=== PATIENT | male | born 1955 | race Caucasian/White ===

== ENCOUNTER 2016-10-22 13:25 | Day surgery (SDC) | payer MEDICARE, OTHER ==
[~2016-10-22 13:25] MED LIST: BUPR-175 PO; CARV6.25 PO; LORA10TA
[2016-10-22] MEDS ORDERED: GABA100C4 PO (13:42)
[2016-10-22] MEDS ORDERED: BUPR75TA PO (13:42)
[2016-10-22] MEDS ORDERED: MELO-1 PO (13:43)
[2016-10-22] MEDS ORDERED: CEPH500C PO (13:43)
[2016-10-22] MEDS ORDERED: ZOLP10TA3 PO (13:44)
[2016-10-22] MEDS ORDERED: FLUTI44I INH (13:44)
[2016-10-22] MEDS ORDERED: OMEP20TA PO (13:45)
[2016-10-22] MEDS ORDERED: ASPI81CH37 CHEW (13:45)
[2016-10-22] MEDS ORDERED: OXYC-395 PO (13:46)
[2016-10-22] MEDS ORDERED: CEPH250C PO (13:49)
[2016-10-22] MEDS ORDERED: DICL500 PO (13:50)
[2016-10-22] MEDS ORDERED: DOXY1CAP74 PO (13:50)
[2016-10-22] MEDS ORDERED: ALEV220T14 PO (13:51)
[2016-10-22] MEDS ORDERED: IBUP400T20 PO (13:51)
[2016-10-22 13:54] VITALS: BP 161/115; PULSE 68; RESP 20; TEMP 98.6; O2SAT 95
[2016-10-22] MEDS ORDERED: oxyCODONE/ACETAMINOPHEN 7.5 MG/325 MG TAB PO ONE (14:30)
[2016-10-22 14:50] VITALS: BP 137/70; PULSE 84; RESP 18; TEMP 97.2; O2SAT 98
--- NOTE | 2016-10-22 14:52 | PD.RAD ---
Post Procedure Progress Note Pre Procedure Diagnosis: (1) Left hip prosthetic joint infection Post Procedure Diagnosis: (1) Left hip prosthetic joint infection Procedure Date: Oct 22, 2016 Supervising Radiologist: Akash Winters JR Proceduralist/Assist: Jade Sanchez, RT(R), Pavithra Moncada, RT(R)(CV) Anesthesia: Local Plan of Activity Patient to Unit: ROPU Patient Condition: Good Additional Comments: Left hip aspiration yielded no fluid. 5ml sterile saline instilled with aspiration giving 0.1ml return. Sent for microbiological analysis See PACS Report for procedural detail/treatment Jr. Singh,Akash Bailey MD Oct 22, 2016 14:52
--- NOTE | 2016-10-22 15:13 | RADRPT ---
EXAM DATE/TIME: 10/22/2016 14:44 [facility] COMPARISON: No previous studies available for comparison. INDICATIONS : Patient with a history of left hip prothesis infection. MEDICAL HISTORY : Afib HTN Arthritis CAD COPD High Cholesterol Gastritis SURGICAL HISTORY : Hip replacement Appendectomy Shoulder surgery ENCOUNTER: Initial ACUITY: 2 weeks PAIN SCORE: 8/10 Left Hip FLUORO TIME: 0.42 minutes IMAGE SERIES: 3 DEVICE(S): 22 gauge needle was placed into the left hip joint. RESPONSE: Pre procedure pain level was 8/10 Post procedure pain level was 6/10 FLUID: Total volume of0.5 cc of pink fluid was removed. PROCEDURE : 1. Fluoroscopically guided left hip aspiration. The risks, benefits and alternatives to the procedure were explained and verbal and written consent w as obtained. The site was prepped in sterile fashion. Full sterile technique was used, including ca p, mask, sterile gloves and gown and a large sterile sheet. Hand hygiene and 2% chlorhexidine and/or betadine/alcohol prep was utilized per protocol for cutaneous antisepsis. The skin and subcutaneous tissues were infiltrated with local anesthetic solution. Fluoroscopic evaluation of the left hip shows a temporary prosthesis. The formal arthroplasty has bee n previously removed. Under fluoroscopic guidance a 22 gauge spinal needle was passed via anterior ap proach down to the inferolateral margin of the femoral head component as well as along the inferomedi al margin of the femoral neck component. Both locations resulted in aspiration as [id number]. 5 mL of sterile saline was passed into the space and aspirated yielding 0.1 mL return. This was sent f or culture. The patient tolerated the procedure well and there were no complications. CONCLUSION: Uncomplicated aspiration as above. Akash Winters Jr., MD on October 22, 2016 at 15:07 Board Certified Radiologist. This report was verified electronically.
[2016-10-22 17:54] LABS: WBC, SYNOVIAL FLUID 350 /MM3 (0-200)
== END 2016-10-22 15:04 | disposition home or self-care (01) ==
LOC: HROP 13:25 → HRIP 13:26 → HROP 15:04
PROVIDERS: ATTEND Orthopaedic Surgery
DX: T84.82XA Fibrosis due to internal orthopedic prosthetic devices, implants and grafts, initial encounter (principal); I48.91 Unspecified atrial fibrillation; I10 Essential (primary) hypertension; I25.10 Atherosclerotic heart disease of native coronary artery without angina pectoris; J44.9 Chronic obstructive pulmonary disease, unspecified; E78.00 Pure hypercholesterolemia, unspecified; Y83.1 Surgical operation with implant of artificial internal device as the cause of abnormal reaction of the patient, or of later complication, without mention of misadventure at the time of the procedure
CPT/HCPCS: 20610; 77002; 87070; 87205; 89051; 89060